=== PATIENT | male | born 1965 | race Caucasian/White ===

== ENCOUNTER 2020-11-14 08:30 | Emergency (ER) | payer BC, SELFPAY ==
--- NOTE | ~2020-11-14 | XR_ITS ---
EXAMINATION: XR chest 2V EXAM DATE: 11/14/2020 09:03 INDICATION: Dizziness. Knee placement 3 weeks ago. TECHNIQUE: Frontal and lateral projections of the chest obtained and reviewed. Comparison is made to prior examination from 05/28/2018. FINDINGS: The lungs are clear. There are no pleural effusions. Cardiomediastinal silhouette is norm al. There is no pneumothorax suspected. Some densities probably gallstones projecting in expected l ocation. IMPRESSION: No acute cardiopulmonary findings. Reviewed, dictated and finalized at location B.
[2020-11-14 08:36] VITALS: BP 153/91; PULSE 76; RESP 16; TEMP 36.6; O2SAT 98
--- NOTE | 2020-11-14 08:36 | ECG_ITS ---
Measurements Intervals [place] Rate: 71 P: 39 ME: 149 QRS: 12 QRSD: 89 T: 31 QT: 360 QTc: 392 Interpretive Statements SINUS RHYTHM WITH SINUS ARRHYTHMIA NORMAL ECG Electronically Signed On 11-14-2020 8:43:32 CDT by Bayron Hollingsworth D.O.
[2020-11-14 08:52] LABS: Basophils Absolute Auto 0.1 K/mm3 (0.0-0.1); Eosinophils Absolute Auto 0.3 K/mm3 (0-0.3); Eosinophils Percent Auto 4.3 % (0-4.4); Hematocrit 40.4 % (42.0-52.0); Hemoglobin 13.4 g/dL (14.0-18.0); Immature Granulocyte Absolute 0.03 K/mm3 (0.00-0.031); Immature Granulocyte Percent A 0.5 % (0-0.5); Lymphocytes Absolute Auto 1.34 K/mm3 (0.9-3.2); Lymphocytes Percent Auto 22.1 % (18.3-44.2); Mean Corpuscular HGB Conc 33.2 g/dl (32-36); Mean Corpuscular Hemoglobin 27.7 pg (26-34); Mean Corpuscular Volume 83.5 fl (80-100); Mean Platelet Volume 9.2 fl (7.4-10.4); Monocytes Absolute Auto 0.4 K/mm3 (0.1-0.6); Monocytes Percent Auto 7.2 % (2.6-8.5); Neutrophils Absolute Auto 3.9 K/mm3 (1.3-6.7); Neutrophils Percent Auto 64.9 % (45.5-73.1); Platelet Count Result 350 k/mm3 (150-375); Red Blood Count 4.84 M/mm3 (4.6-6.20); Red Cell Distribution Width 14.2 % (11.5-14.5); White Blood Count 6.1 K/mm3 (4.5-10.0)
--- NOTE | 2020-11-14 09:00 | PC.NURSE ---
Jennifer from lab called - need redraw of green top
[2020-11-14 09:34] VITALS: BP 137/90; PULSE 77; RESP 19; O2SAT 97
[2020-11-14] MEDS: MECLIZINE HCL 25 MG TABLET 50 MG PO (09:40)
[2020-11-14 09:43] LABS: Anion Gap 9 mmol/L (8-16); Blood Urea Nitrogen 13 mg/dL (9-20); Calcium 10.2 mg/dL (8.4-10.2); Carbon Dioxide 24 mmol/L (22-30); Chloride 104 mmol/L (98-107); Estimated CRCL calculation 102 ml/min; Estimated Glomerular Filt Rate > 60; Glucose 116 mg/dL (75-110); Potassium 3.9 mmol/L (3.4-5.0); Sodium 137 mmol/L (137-145)
[2020-11-14 11:34] VITALS: BP 143/102; PULSE 83; RESP 20; O2SAT 98
--- NOTE | 2020-11-14 11:47 | ED.DIZZY ---
HPI - Dizziness General Chief Complaint: Dizziness Stated Complaint: Dizzy Time Seen by Provider: 11/14/20 09:09 Source: patient Mode of arrival: ambulatory Limitations: no limitations History of Present Illness HPI Narrative: 55-year-old male History of hypertension, and recently had a left-sided knee replacement Woke up this morning with dizziness Symptom is primarily a vertiginous/rotation/spinning feeling, and is triggered by changing positions her head movements He does not report any gait disturbance, no ataxia, no headache and no syncope He does not have any tinnitus but is aware of some hearing loss on the left side because he gets his hearing checked at work every year Related Data Home Medications Medication Instructions Recorded Confirmed aspirin 81 mg tablet,delayed 81 mg PO DAILY 03/20/20 10/02/20 release metformin 500 mg tablet 250 mg PO BID tablet 10/02/20 10/02/20 rosuvastatin 40 mg tablet 40 mg PO DAILY 10/02/20 10/02/20 ticagrelor 60 mg tablet 60 mg PO Q12H 10/02/20 10/02/20 oxycodone-acetaminophen 11/14/20 Allergies Allergy/AdvReac Type Severity Reaction Status Date / Time meperidine Allergy Unknown Unknown Verified 11/14/20 08:40 Review of Systems Review of Systems: All systems reviewed & are unremarkable except as noted in HPI and below Constitutional: Constitutional: Reports no additional constitutional complaints, Denies chills, Denies fever(s) and Denies headache(s) Eyes: Eyes: Reports no additional eye complaints and Denies change in vision ENT: Reports vertigo, Reports dizziness, Denies headache(s) and Denies sore throat Cardiovascular: Cardiovascular: Denies chest pain and Denies dyspnea Respiratory: Respiratory: Denies cough and Denies dyspnea Gastrointestinal: Gastrointestinal: Denies abdominal pain, Denies diarrhea, Reports nausea (Mild) and Denies vomiting Genitourinary: Genitourinary: Denies dysuria and Denies urinary frequency Musculoskeletal: Musculoskeletal: Denies deformity, Denies arthralgias, Denies joint swelling and Denies numbness Integumentary/Breasts: Skin/Breast: Denies rash and Denies wounds Neurologic: Reports vertigo, Reports dizziness, Denies syncope, Denies headache(s), Denies focal weakness and Denies numbness Psychiatric: Psychiatric: Reports no additional psychiatric complaints Endocrine: Endocrine: Reports no additional endocrine complaints Hematologic/Lymphatic: Hematologic/Lymphatic: Reports no additional hematologic/lymphatic complaints Allergic/Immunologic: Allergic/Immunologic: Reports no additional allergic/immunologic complaints [facility] Past Medical History Medical History (Updated 11/14/20 @ 11:51 by Kenn Farnsworth MD) BMI over 35 Coronary artery disease Family History Family History Mother Family history of obesity Hypertension Cerebrovascular accident Family history of malignant neoplasm of breast in first degree relative Father Hypertension Patient's father is in good health Grandparent Family history of alcoholism Family history of malignant neoplasm of breast in first degree relative Family history of lung cancer Family history of throat cancer Other Diabetes mellitus Social History Social History Smoking status: Never smoker Alcohol intake: current Exam Const: General: cooperative, healthy appearing, no acute distress and alert Orientation/consciousness: patient oriented x3 (alert) HENMT: Head: normal to inspection, normocephalic and atraumatic Ears: external ears normal, TM's normal bilaterally and EAC's normal General nose exam: no epistaxis Mouth: Yes moist mucous membranes Other: Decreased hearing acuity on the left side Eyes: Conjunctivae: conjunctivae normal EOM: EOMs intact bilaterally Neck: Neck: normal visual inspection, no lymphadenopathy, no meningeal signs, supple
[2020-11-14 12:10] VITALS: BP 141/86; PULSE 70; RESP 15; O2SAT 97
== END 2020-11-14 12:11 | disposition home or self-care (01) ==
PROVIDERS: Emergency Provider Emergency Medicine; PCP Family Medicine
DX: H81.10 Benign paroxysmal vertigo, unspecified ear (principal); I10 Essential (primary) hypertension; I25.10 Atherosclerotic heart disease of native coronary artery without angina pectoris; Z96.652 Presence of left artificial knee joint; Z79.82 Long term (current) use of aspirin; Z79.84 Long term (current) use of oral hypoglycemic drugs
CPT/HCPCS: 36415; 71046; 80048; 85025; 93005; 99284; A9270

== ENCOUNTER → 2021-02-03 14:01 | Outpatient (CLI) | payer BC, SELFPAY ==
--- NOTE | ~2021-02-03 | MR_ITS ---
EXAMINATION: MR lumbar spine wo/w con EXAM DATE: 02/03/2021 14:53 INDICATION: Right lower back pain and right leg numbness to right foot right lower back pain. TECHNIQUE: Multi-sequential, multiplanar MR images of the lumbar spine were obtained without contrast . Sagittal T1, T2, T2 fat saturation images. Axial T2 weighted images. Axial T1 weighted sequence. Patient was then injected with 19 mL Multihance intravenous contrast and reimaged. Postcontrast axi al and sagittal T1-weighted fat saturation sequences were obtained. There are no prior studies for co mparison. FINDINGS: Patient may have had prior right L5 laminotomy. There is moderate loss of the L4-5 and L5-S 1 disc height, mild to moderate at L1-2 and mild at L3-4. The vertebral bodies are aligned in the AP dimension. The conus medullaris terminates at the L1/2 level and has normal signal intensity and morp hology. There are no suspicious marrow signal abnormalities. Paraspinal soft tissue is unremarkable. There are no areas of abnormal enhancement on the post contrast images. Level by level evaluation: T12-L1: There is a minimal diffuse disc bulge. Facet arthropathy: None. Neural foraminal stenosis: No stenosis. Central canal stenosis: No stenosis. L1-L2: There is a mild diffuse disc bulge. Facet arthropathy: Mild. Neural foraminal stenosis: No stenosis. Central canal stenosis: No stenosis. L2-L3: There is a mild diffuse disc bulge. Facet arthropathy: Mild. Neural foraminal stenosis: No stenosis. Central canal stenosis: No stenosis. L3-L4: There is a moderate diffuse disc bulge. Facet arthropathy: Moderate . Ligamentum flavum enlargement. Neural foraminal stenosis: Mild bilateral. Central canal stenosis: Mild to moderate. L4-L5: There is a moderate diffuse disc bulge asymmetric to the right Facet arthropathy: Mild to moderate . Ligamentum flavum enlargement. Neural foraminal stenosis: Mild to moderate right, mild left. Central canal stenosis: Moderate to severe, particularly the right lateral recess. L5-S1: There is a moderate diffuse disc bulge. Facet arthropathy: Moderate. Neural foraminal stenosis: Mild to moderate bilateral. Central canal stenosis: Mild to moderate. IMPRESSION: 1. L4-5 moderate to severe central canal stenosis, especially right lateral recess. 2. Less spondylosis other levels. Reviewed, dictated and finalized at location B. IMPRESSION: 1. L4-5 moderate to severe central canal stenosis, especially right lateral re cess. 2. Less spondylosis other levels.
[2021-02-03 14:29] LABS: Estimated Glomerular Filt Rate > 60
== END ==
PROVIDERS: PCP Family Medicine; Visit Provider Chiropractor
DX: M47.896 Other spondylosis, lumbar region (principal)
CPT/HCPCS: 72158; A9577

== ENCOUNTER 2021-08-10 10:10 | Emergency (ER) | payer BC, SELFPAY ==
[2021-08-10] VITALS (9 sets, daily range): BP systolic 136–160; BP diastolic 85–100; PULSE 79–96; RESP 16–21; TEMP 36.4; O2SAT 96–99
--- NOTE | 2021-08-10 10:15 | ECG_ITS ---
Measurements Intervals [place] Rate: 81 P: 152 ID: 139 QRS: 183 QRSD: 93 T: 168 QT: 344 QTc: 400 Interpretive Statements SINUS RHYTHM ARM LEADS REVERSED BASELINE ARTIFACT- AVL, AVF ATYPICAL ECG Electronically Signed On 08-11-2021 16:00:20 [employer] MAN by Bayron Hollingsworth D.O.
[2021-08-10 10:50] LABS: Basophils Percent Auto 0.3 % (0.2-1.2); Eosinophils Absolute Auto 0.1 K/mm3 (0-0.3); Eosinophils Percent Auto 1.1 % (0-4.4); Hematocrit 45.2 % (42.0-52.0); Immature Granulocyte Absolute 0.02 K/mm3 (0.00-0.031); Immature Granulocyte Percent A 0.2 % (0-0.5); Lymphocytes Absolute Auto 1.54 K/mm3 (0.9-3.2); Lymphocytes Percent Auto 17.3 % (18.3-44.2); Mean Corpuscular HGB Conc 33.2 g/dl (32-36); Mean Corpuscular Hemoglobin 27.6 pg (26-34); Mean Corpuscular Volume 83.2 fl (80-100); Mean Platelet Volume 9.7 fl (7.4-10.4); Monocytes Absolute Auto 0.5 K/mm3 (0.1-0.6); Monocytes Percent Auto 5.9 % (2.6-8.5); Neutrophils Absolute Auto 6.7 K/mm3 (1.3-6.7); Neutrophils Percent Auto 75.2 % (45.5-73.1); Platelet Count Result 261 k/mm3 (150-375); Red Blood Count 5.43 M/mm3 (4.6-6.20); Red Cell Distribution Width 14.9 % (11.5-14.5); White Blood Count 8.9 K/mm3 (4.5-10.0)
[2021-08-10 11:01] LABS: Alanine Aminotransferase 30 U/L (4-50); Albumin Level 4.8 g/dL (3.5-5.1); Alkaline Phosphatase 133 U/L (38-126); Anion Gap 8 mmol/L (8-16); Aspartate Amino Transferase 30 U/L (17-59); Bilirubin,Total 0.6 mg/dL (0.2-1.3); Blood Urea Nitrogen 14 mg/dL (9-20); Calcium 9.7 mg/dL (8.4-10.2); Carbon Dioxide 22 mmol/L (22-30); Chloride 102 mmol/L (98-107); Estimated CRCL calculation 93 ml/min; Estimated Glomerular Filt Rate > 60; Glucose 124 mg/dL (65-110); Potassium 3.8 mmol/L (3.4-5.0); Sodium 132 mmol/L (137-145)
[2021-08-10 11:32] LABS: Troponin I < 0.012 ng/mL (0.000-0.034)
--- NOTE | 2021-08-10 12:15 | PC.NURSE ---
Patient given urine cup and ambulated to the restroom without any difficulty. Patient then ambulated back and gave RN urine cup. Patient reconnected to cardiac monitors, blood pressure, and pulse ox monitors.
[2021-08-10 13:30] LABS: Troponin I < 0.012 ng/mL (0.000-0.034)
--- NOTE | 2021-08-10 14:04 | ED.DIZZY ---
HPI - Dizziness General Chief Complaint: Dizziness Stated Complaint: dizziness Time Seen by Provider: 08/10/21 10:56 Source: patient Mode of arrival: ambulatory Limitations: no limitations History of Present Illness HPI Narrative: 56-year-old with a history of hypertension, diabetes, CAD s/p stent 2017 here with complaints of lightheadedness since this morning. Patient states he woke up felt extremely lightheaded lasted for few hours. He states he ate breakfast felt better after that. He denied any chest pain. No history of nausea, vomiting. He states that he has history of vertigo but this was different. He presently is feeling slightly better is able to ambulate without any difficulty. MD elicited complaint: lightheadedness Pertinent past history: other (CAD and DM) Onset (ago): hour(s) (2) Timing: sudden onset Severity: moderate Description: lightheadedness History of similar symptoms: No Exacerbating factors: nothing Relieving factors: nothing Associated symptoms: denies other symptoms Related Data Home Medications Medication Instructions Recorded Confirmed aspirin 81 mg tablet,delayed 81 mg PO DAILY 03/20/20 01/30/21 release metformin 500 mg tablet 250 mg PO BID tablet 10/02/20 01/30/21 rosuvastatin 40 mg tablet 40 mg PO DAILY 10/02/20 01/30/21 ticagrelor 60 mg tablet 60 mg PO Q12H 10/02/20 01/30/21 lisinopril 40 mg PO DAILY 08/10/21 Allergies Allergy/AdvReac Type Severity Reaction Status Date / Time meperidine Allergy Unknown Unknown Verified 08/10/21 10:41 Review of Systems Constitutional: Constitutional: Reports no additional constitutional complaints Eyes: Eyes: Reports no additional eye complaints ENT: Reports system reviewed and no additional complaints, except as documented Cardiovascular: Cardiovascular: Reports no additional cardiovascular complaints Respiratory: Respiratory: Reports no additional respiratory complaints Gastrointestinal: Gastrointestinal: Reports no additional gastrointestinal complaints Musculoskeletal: Musculoskeletal: Reports no additional musculoskeletal complaints Neurologic: Reports system reviewed and no additional complaints, except as documented Endocrine: Endocrine: Reports no additional endocrine complaints [facility] Past Medical History Medical History BMI 33.0-33.9,adult BMI over 35 Coronary artery disease Surgical History Surgical History History of left knee replacement Family History Family History Mother Family history of obesity Hypertension Cerebrovascular accident Family history of malignant neoplasm of breast in first degree relative Father Hypertension Patient's father is in good health Grandparent Family history of alcoholism Family history of malignant neoplasm of breast in first degree relative Family history of lung cancer Family history of throat cancer Other Diabetes mellitus Social History Social History Smoking status: Never smoker Alcohol intake: current Exam Narrative: GENERAL: Well-appearing, well-nourished, and in no acute distress. HEAD: Normocephalic, atraumatic. EYES: PERRLA and EOMI. NECK: Supple. CHEST: Clear to auscultation. No respiratory distress. HEART: Regular rate and rhythm. No murmur heard. Normal peripheral pulses. ABDOMEN: Soft, nontender, nondistended, normal active bowel sounds. EXTREMITIES: Normal range of motion. No edema. SKIN: Warm, dry, no rash. NEURO: No focal deficits. Alert and oriented x3. PSYCH: Normal mood and affect. Course Course Emergency Course: Patient states he is feeling slightly better. He was able to ambulate to the bathroom without any difficulty. I discussed lab work, EKG findings with him. Also had a discussion with Bina Gerber cardiology. [place]
== END 2021-08-10 14:07 | disposition home or self-care (01) ==
PROVIDERS: Emergency Provider Family Medicine; PCP Family Medicine
DX: R42 Dizziness and giddiness (principal); I10 Essential (primary) hypertension; I25.10 Atherosclerotic heart disease of native coronary artery without angina pectoris; E11.9 Type 2 diabetes mellitus without complications; Z95.5 Presence of coronary angioplasty implant and graft; Z96.652 Presence of left artificial knee joint; Z79.82 Long term (current) use of aspirin; Z79.84 Long term (current) use of oral hypoglycemic drugs
CPT/HCPCS: 36415; 80053; 84484; 85025; 93005; 99284

== ENCOUNTER 2022-01-24 14:36 | Emergency (ER) | payer BC, SELFPAY ==
[2022-01-24 14:43] VITALS: BP 130/82; PULSE 97; RESP 20; TEMP 36.2; O2SAT 96
--- NOTE | 2022-01-24 15:51 | ED.GENADULT ---
HPI - General Adult General Chief complaint: Upper Respiratory Infection Stated complaint: Congestion,Sore Throat,Bilateral Ear Irritation History of Present Illness HPI narrative: Patient is a 56-year-old male who [facility] evaluation of upper respiratory symptoms that have been present for 3 days. Additionally, he reports a productive cough, sore throat, bilateral ear pain, nasal congestion. He reports sputum production is moderate in quantity and yellow in color. No relief with [id number] cold and allergy medications. OTC mucus relief provides some relief. Denies known exposure to sick contacts. Patient denies alleviating aggravating factors. Of note, recent home COVID test was negative. Related Data Home Medications Medication Instructions Recorded Confirmed aspirin 81 mg tablet,delayed 81 mg PO DAILY 03/20/20 01/24/22 release (Adult Low Dose Aspirin) Allergies Allergy/AdvReac Type Severity Reaction Status Date / Time meperidine AdvReac Intermediate Nausea and Verified 01/24/22 15:04 Vomiting Review of Systems Review of Systems: Denies fever, chills, sweats, change in appetite, poor p.o. intake, sinus pain/pressure, ear drainage, hearing difficulty, drooling, voice changes, wheezing, shortness of breath, hemoptysis, cyanosis, nausea, vomiting, diarrhea, chest pain, and heart palpitations PMFSH Past Medical History Medical History BMI 33.0-33.9,adult BMI 34.0-34.9,adult BMI over 35 Coronary artery disease Surgical History Surgical History History of back surgery History of left knee replacement Family History Family History Mother Family history of obesity Hypertension Cerebrovascular accident Family history of malignant neoplasm of breast in first degree relative Father Hypertension Patient's father is in good health Grandparent Family history of alcoholism Family history of malignant neoplasm of breast in first degree relative Family history of lung cancer Family history of throat cancer Sibling No problems noted. 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 There is no relevant family history pertinent to the presenting complaint. Exam Narrative: GENERAL: Well-appearing, well-nourished, and in no acute distress. HEAD: Normocephalic, atraumatic. No sinus tenderness or facial swelling appreciated. EYES: PERRLA and EOMI. No evidence of erythema, swelling, or drainage. ENT: Bilateral external ears and ear canals normal. Bilateral TMs are normal.No TM perforation. Nares clear, no rhinorrhea or epistaxis. Bilateral turbinates without erythema/ swelling. Mucous membranes moist and pink. Uvula is midline without erythema and swelling. Mild erythema noted to posterior pharynx. Breath odor and voice normal. NECK: Supple. No Lymphadenopathy or nuchal rigidity appreciated. CHEST: Bilateral lung patel are clear to auscultation. No respiratory distress. No evidence pleuritic cp upon examination. Mild to moderate wet cough appreciated on examination. HEART: Regular rate and rhythm. No murmur, gallop, or rub heard. EXTREMITIES: Normal range of motion. No edema. SKIN: Warm, dry, no rash. NEURO: No focal deficits. Alert and oriented x3. Course Course Level of Care: Express Care Visit Vital Signs Vital signs: Vital
== END 2022-01-24 15:30 | disposition home or self-care (01) ==
PROVIDERS: Emergency Provider Nurse Practitioner Family; PCP Family Medicine
DX: J06.9 Acute upper respiratory infection, unspecified (principal); Z20.822 Contact with and (suspected) exposure to COVID-19; Z96.652 Presence of left artificial knee joint
CPT/HCPCS: 87426; 99213; C9803; G0463

== ENCOUNTER 2022-06-08 08:15 | Outpatient (CLI) | payer BC, SELFPAY ==
--- NOTE | 2022-06-26 17:11 | WPDHOMESLEEP ---
Sleep Study - Home Unattended Date of Study: 06/08/22 Ordering Provider: Beata Chua MD Interpreting Provider: Milagro Burdick, DO Home Sleep Study Type: Watch PAT Height: 1.75 m Weight: 108.862 kg Body Mass Index: 35.4 Neck Circumference (inches): 17.25 [place]: 7 Reason for Sleep Study Snoring and witnessed apneas Sleep History The patient is a 57-year-old male with coronary artery disease, hypertension, hyperlipidemia, diabetes, asthma, history of cardiac stent, history of angioplasty, asthma and history of tobacco use that had a sleep study ordered by his engineering specialist for evaluation of sleep apnea. The patient denies awakening from sleep short of breath. He denies awakening at night with heartburn, belching or cough. He frequently snores loud enough that others complain. He denies having trouble sleeping when he has a cold. He frequently wakes up gasping for air throughout the night. He frequently has breathing problems at night observed by himself or others. He occasionally sweats excessively at night. He denies having heart palpitations or irregular heartbeats during the night. He occasionally falls asleep during the day but never while driving. He denies sleep paralysis, cataplexy and hypnagogic / hypnopompic hallucinations. He denies having trouble at school or work due to sleepiness. He denies feeling afraid of going to sleep. He denies having nightmares. He rarely remembers his dreams. He denies having thoughts racing through his mind. He denies feeling sad, depressed or anxious. He denies having muscular tension. He occasionally notices parts of his body jerk. He denies kicking during the night. He denies having crawling and aching feelings in his legs as well as leg pain during the night. He occasionally grinds his teeth during sleep but never awakens with morning jaw pain. He is rarely bothered by pain during the day and rarely awakened by pain during the night. He denies waking up feeling stiff in the morning. He denies waking up with sore or achy muscles. He denies waking up with pain in the neck, spine or other joints. He goes to bed at 8:00 p.m. on weekdays. He does not have a set bedtime on the weekends. It takes him 10 minutes to fall asleep. He wakes up once throughout the night to urinate. He is able to fall back asleep within 5 minutes. He wakes up at 3:00 a.m. on weekdays and does not have a set wake-up time on the weekends. He gets 6-7 hours of sleep per night. He does not stay in bed after waking up in the morning. He currently lives with his spouse. He does not consume any caffeinated beverages within 2 hours of bedtime. He does not engage in physical exercise before bedtime. He will watch television before falling asleep. He denies taking naps in the afternoon or the evening. He drinks 5 caffeinated beverages per day. He drinks 2 alcoholic beverages per day. He is a former smoker. He denies recreational drug use. [facility] Past Medical History Medical History BMI 33.0-33.9,adult BMI 34.0-34.9,adult BMI over 35 Coronary artery disease Surgical History Surgical History History of back surgery History of left knee replacement Family History Family History Mother Family history of obesity Hypertension Cerebrovascular accident Family history of malignant neoplasm of breast in first degree relative Father Hypertension Patient's father is in good health Grandparent Family history of alcoholism Family history of malignant neoplasm of breast in first degree relative Family history of lung cancer Family history of throat cancer Sibling No problems noted. Other Diabetes mellitus Social History Social History Second h
[2022-06-26 17:28] VITALS: BMI 35.4
== END 2022-06-09 11:28 | disposition home or self-care (01) ==
PROVIDERS: PCP Family Medicine; Visit Provider Internal Medicine Cardiovascular Disease
DX: G47.33 Obstructive sleep apnea (adult) (pediatric) (principal)
CPT/HCPCS: 95800

== ENCOUNTER 2023-07-06 11:41 | Outpatient (CLI) | payer BC, SELFPAY ==
--- NOTE | 2023-07-06 | ECG_ITS ---
Measurements Intervals [place] Rate: 77 P: 54 AR: 157 QRS: 30 QRSD: 90 T: 60 QT: 341 QTc: 387 Interpretive Statements SINUS RHYTHM COMPARED TO ECG 08/10/2021 10:15:13 LEAD REVERSAL HAS BEEN CORRECTED Electronically Signed On 07-06-2023 21:03:18 411 DIRECTORY ASSISTANCE OPERATOR by Ashutosh Traylor M.D.
[2023-07-06 13:09] LABS: Anion Gap 11 mmol/L (8-16); Blood Urea Nitrogen 19 mg/dL (9-20); Calcium 9.7 mg/dL (8.4-10.2); Carbon Dioxide 21 mmol/L (22-30); Chloride 107 mmol/L (98-107); Estimated Glomerular Filt Rate > 60; Glucose 134 mg/dL (65-110); Potassium 3.8 mmol/L (3.4-5.0); Sodium 139 mmol/L (137-145)
== END 2023-07-06 11:42 | disposition home or self-care (01) ==
LOC: ANHLAB 11:43
PROVIDERS: PCP Family Medicine; Visit Provider Orthopaedic Surgery
DX: E11.9 Type 2 diabetes mellitus without complications (principal); I10 Essential (primary) hypertension
CPT/HCPCS: 36415; 80048; 93005